=== PATIENT | female | born 1990 | race Caucasian/White ===

== ENCOUNTER 2019-08-04 10:56 | Inpatient (IN) | payer BC ==
[2019-08-08] MEDS ORDERED: Bupivacaine PF 0.5% 30 ML VIAL ONE (09:26)
[2019-08-08] MEDS ORDERED: Lidocaine 2% MPF 10 ML AMP (For Epidural Use) ONE (09:26)
[2019-08-08] MEDS ORDERED: Lidocaine 1% (PF) 30 ML VIAL SC PRN (15:21)
[2019-08-08] MEDS ORDERED: Diphenoxylate HCl/Atropine Tablet PO PRN (15:21)
[2019-08-08] MEDS ORDERED: Ondansetron PF 4 MG/2 ML Vial IVP PRN (15:21)
[2019-08-08] MEDS ORDERED: Carboprost 250 MCG/ML AMP IM PRN (15:21)
[2019-08-08] MEDS ORDERED: hydrALAZINE 20 MG/ML VIAL SLOW IVP PRN (15:21)
[2019-08-08] MEDS ORDERED: Acetaminophen 500 MG TAB PO PRN (15:21)
[2019-08-08] MEDS ORDERED: HYDROcodone/Acetaminophen 5/325 mg Tablet PO PRN (15:21)
[2019-08-08] MEDS ORDERED: NS / Oxytocin 40 units/1000ml 1,000 ML IV PRN (15:21)
[2019-08-08] MEDS ORDERED: Promethazine HCl 25 MG/ML VIAL IM PRN (15:21)
[2019-08-08] MEDS ORDERED: Ibuprofen 800 MG TAB PO PRN (15:21)
[2019-08-08] MEDS ORDERED: Butorphanol Tartrate 1 MG/ML VIAL SLOW IVP PRN (15:21)
[2019-08-08] MEDS ORDERED: Zolpidem Tartrate 5 MG TAB PO PRN (15:21)
[2019-08-08] MEDS ORDERED: NS w/ Oxytocin 10 units 500 ML IV SCH (15:30)
[2019-08-08] MEDS: Lactated Ringer's 1,000 ML IV SCH (19:46)
[2019-08-08 20:15] VITALS: BMI 32.9
[2019-08-08 20:34] LABS: Hemoglobin 13.8 g/dL (12.0-16.0); Mean Corpuscular HGB CONC 33.2 g/dL (32.0-36.0); Mean Corpuscular Hemoglobin 32.7 pg (27.0-31.0); Mean Corpuscular Volume 98.3 fL (78.0-98.0); Mean Platelet Volume 9.9 fL (7.4-10.4); Platelet Count 198 thou/uL (130-400); RBC Distribution Width 11.7 % (11.5-14.5); Red Blood Cell (RBC) Count 4.21 mill/uL (4.20-5.40); White Blood Cell (WBC) Count 10.6 thou/uL (4.8-10.8)
[2019-08-08] MEDS: Misoprostol 100 MCG TAB VAG SCH (20:40)
[2019-08-08 21:12] LABS: Syphilis Antibody Nonreactive (Nonreactive); Syphilis Antibody Index 0.03 S/CO (<1.00 Non-Reactive)
[2019-08-08 22:31] LABS: HBSAg Index 0.13 S/CO (0-0.99); Hep B Surf Ag Non-Reactive S/CO (NonReactive)
[2019-08-09] MEDS: Misoprostol 100 MCG TAB VAG SCH ×2 (00:53→04:00)
[2019-08-09] MEDS ORDERED: Fentanyl 4 mcg/Bup 0.1% Cadd 100 ML ONE ×2 (06:55→14:37)
[2019-08-09] MEDS ORDERED: Fentanyl 100 MCG/2 ML VIAL ONE ×2 (07:12→17:56)
[2019-08-09] MEDS ORDERED: Bupivacaine 0.5% 10 ML VIAL ONE (07:12)
[2019-08-09] MEDS ORDERED: Fentanyl 100 MCG/2 ML VIAL I-THECAL ONE (07:41)
[2019-08-09] MEDS ORDERED: Bupivacaine 0.25% 10 ML VIAL EPIDURAL SCH (07:41)
[2019-08-09] MEDS: Lactated Ringer's 1,000 ML IV SCH ×4 (07:42→23:30)
[2019-08-09] MEDS ORDERED: EPHEDRINE 25 MG/5 ML SYRINGE SLOW IVP PRN (07:43)
[2019-08-09] MEDS ORDERED: Ondansetron PF 4 MG/2 ML Vial IVP PRN ×2 (07:43→18:44)
[2019-08-09] MEDS ORDERED: Acetaminophen 325 MG TAB PO PRN (07:43)
[2019-08-09] MEDS ORDERED: Lactated Ringer's 500 ML IV PRN (07:43)
[2019-08-09] MEDS ORDERED: Promethazine HCl 25 MG/ML VIAL IM PRN ×2 (07:43→18:44)
[2019-08-09] MEDS ORDERED: diphenhydrAMINE 50 MG/ML VIAL IVP PRN ×2 (07:43→18:44)
[2019-08-09] MEDS ORDERED: Naloxone HCl 0.4 mg/ml Vial IVP PRN ×4 (07:43→18:44)
[2019-08-09] MEDS ORDERED: Fentanyl 4 mcg/Bupivacaine 0.1% Cassette 100 ML EPIDURAL SCH (07:45)
[2019-08-09] MEDS ORDERED: Communication Order-Pharmacy FS PRN (07:45)
[2019-08-09] MEDS ORDERED: NS / Oxytocin 40 units/1000ml 0 ML ONE (12:30)
[2019-08-09] MEDS ORDERED: Lidocaine 1% (PF) 30 ML VIAL ONE (12:31)
[2019-08-09] MEDS: Bicitra 30 ML UDCUP ONE (17:36)
[2019-08-09] MEDS ORDERED: EPHEDRINE 25 MG/5 ML SYRINGE ONE (17:44)
[2019-08-09] MEDS ORDERED: Ondansetron PF 4 MG/2 ML Vial ONE (17:44)
[2019-08-09] MEDS ORDERED: MORPHINE 5 MG/10 ML PF VIAL ONE (17:44)
[2019-08-09] MEDS ORDERED: PHENYLEPHRINE-NS 100 MCG/ML 10 ML SYRINGE ONE (17:44)
[2019-08-09] MEDS ORDERED: Ketorolac Tromethamine 30 MG/ML VIAL ONE ×2 (17:44→20:08)
[2019-08-09] MEDS ORDERED: Dexamethasone 4 mg/ml Vial ONE (17:44)
[2019-08-09] MEDS ORDERED: Oxytocin 10 UNITS/ML VIAL ONE (17:44)
[2019-08-09] MEDS ORDERED: CEFAZOLIN 2 GM in Premix Bag 1 BAG IVPB SCH (17:45)
[2019-08-09] MEDS ORDERED: Bicitra 30 ML UDCUP PO SCH (17:45)
[2019-08-09] MEDS ORDERED: Azithromycin 500 MG in Sodium Chloride 0.9% 250 ML 250 ML IVPB SCH (17:45)
--- NOTE | 2019-08-09 17:46 | PDOC.EVN ---
Event Note - Event Note Event Note: Patient has been undergoing labor induction for post dates. She has progressed slowly to 6/C/0 at 1700. She has continued to have recurrent late decelerations that have now become more frequent with decreasing variability despite position change, ivf boluses. etc. A/P: Non reassurring heart rate with protracted cervical dilatation. Proceed with primary c/s...
[2019-08-09] MEDS ORDERED: diphenhydrAMINE 25 MG CAP PO PRN (17:47)
[2019-08-09] MEDS ORDERED: Bisacodyl 10 MG SUPP PR PRN (17:47)
[2019-08-09] MEDS ORDERED: hydrALAZINE 20 MG/ML VIAL SLOW IVP PRN (17:47)
[2019-08-09] MEDS ORDERED: Adacel (T-DAP) 0.5 ML SYRINGE IM ONE (17:47)
[2019-08-09] MEDS ORDERED: Misoprostol 200 MCG TAB PR PRN (17:47)
[2019-08-09] MEDS ORDERED: Azithromycin 500 MG VIAL ONE (17:53)
[2019-08-09] MEDS ORDERED: Methylergonovine 0.2 MG/ML VIAL ONE (18:09)
[2019-08-09] MEDS ORDERED: Midazolam HCl 2 mg/2 ml Vial ONE (18:15)
[2019-08-09] MEDS ORDERED: Carboprost 250 MCG/ML AMP ONE (18:16)
[2019-08-09 18:22] LABS: Actual Bicarbonate (HCO3a) 22.8 mEq/L (22-28)
[2019-08-09 18:25] LABS: Actual Bicarbonate (HCO3v) 24 mEq/L (22-28); Base Excess -4.9 mEq/L (-2.0 to +3.0)
[2019-08-09 18:27] LABS: pH (Cord, venous) 7.24 (7.32-7.43)
--- NOTE | 2019-08-09 18:35 | PDOC.OPDEL ---
OB Operative/Delivery Note Delivery Dr/Surgeon: Brandon Assist: James Pre-Delivery Diagnosis: elective induction Procedure/Post Delivery Dx: primary low transverse CS Weeks gestation: 40 Anesthesia: epidural - Findings A Sex: female Weight: 7 lb 3 oz - 1 min: 9 - 5 min: 9 - Additional Findings/Plan Placenta delivered: manual removal findings: low transverse hysterotomy without extension Estimated blood loss: 800 ml Post delivery plan: routine recovery (Initial uterine atony responsive to amp of methergine and hemabate.)
[2019-08-09] MEDS ORDERED: Loperamide HCl 2 MG CAP PO PRN (18:38)
[2019-08-09] MEDS ORDERED: Meperidine HCl/PF 25 MG/ML VIAL SLOW IVP PRN (18:44)
[2019-08-09] MEDS ORDERED: HYDROmorphone 2 MG/ML VIAL SLOW IVP PRN (18:44)
[2019-08-09] MEDS ORDERED: L&D-Morphine 4 MG/ML VIAL SLOW IVP PRN (18:44)
[2019-08-09] MEDS ORDERED: Naloxone HCl 0.4 mg/ml Vial IV PRN (18:44)
[2019-08-09] MEDS ORDERED: Promethazine HCl 25 MG SUPP PR PRN (18:44)
[2019-08-09] MEDS ORDERED: Ondansetron HCl/PF 4 MG/2 ML Vial IVP PRN (18:44)
[2019-08-09] MEDS ORDERED: Communication Order-Pharmacy FS SCH (18:45)
[2019-08-09] MEDS ORDERED: Ketorolac Tromethamine 30 MG/ML VIAL IVP SCH (18:45)
[2019-08-09] MEDS ORDERED: Meperidine HCl/PF 25 MG/ML VIAL ONE (19:38)
[2019-08-09] MEDS: Ketorolac Tromethamine 30 MG/ML VIAL IVP PRN (20:12)
[2019-08-09] MEDS ORDERED: Morphine 4 MG/ML VIAL ONE (20:52)
[2019-08-09] MEDS ORDERED: Lanolin Ointment 7 GM TUBE TOP PRN (22:18)
[2019-08-09] MEDS ORDERED: Milk Of Magnesia 30 ML UDCUP PO PRN (22:18)
[2019-08-09] MEDS ORDERED: Methylergonovine 0.2 MG TAB PO PRN (22:18)
[2019-08-09] MEDS ORDERED: Methylergonovine 0.2 MG/ML VIAL IM PRN (22:18)
--- NOTE | 2019-08-09 23:01 | OP ---
DATE OF PROCEDURE: 08/09/2019 PREOPERATIVE DIAGNOSES: 1. 29-year-old white female, G1, P0, at 40 weeks and 5 days gestation. 2. Status post labor induction. 3. Protracted cervical dilatation at 6 cm. 4. Non-reassuring heart rate tracing remote from delivery. POSTOPERATIVE DIAGNOSES: 1. 29-year-old white female, G1, P0, at 40 weeks and 5 days gestation. 2. Status post labor induction. 3. Protracted cervical dilatation at 6 cm. 4. Non-reassuring heart rate tracing remote from delivery. PROCEDURES PERFORMED: Primary low transverse section without extension. [facility]: Dr. Ramirez from [facility]. ANESTHESIA: Epidural. ESTIMATED BLOOD LOSS: 800 mL. COMPLICATIONS: None. COUNTS: Correct x2. ANTIBIOTICS: 2 g Ancef, then 500 mg of Zithromax per protocol. FINDINGS: 1. Female in the ROP presentation, clear amniotic fluid noted. Apgars 9 and 9. weight 7 pounds 3 ounces. 2. Normal-appearing uterus, tubes, and ovaries. 3. Initial uterine atony responsive to one amp Methergine and one amp Hemabate. 4. Clear urine present in Randolph catheter postprocedure. DISPOSITION: Recovery room, stable. DESCRIPTION OF PROCEDURE: The patient previously received informed consent and was then taken back to the operative room. She had adequate dosing of her epidural anesthesia and once this was felt to be adequate, the patient had been prepped and draped in usual sterile fashion with draining Randolph catheter. A Pfannenstiel incision was made in the lower abdomen and was carried down to the fascia. Fascia was nicked in the midline. Fascial incision was extended with Crum scissors. The rectus muscle belly was then dissected superiorly and inferiorly off the rectus muscle bellies and the peritoneal cavity was entered. The peritoneal incision was extended and Nikunj O retractor was placed. Bladder flap was created in usual fashion. A 2 cm hysterotomy incision was made in the lower uterine segment. This was extended via finger fractionation. The baby was delivered in the vertex presentation. Mouth and nares were bulb suctioned on the abdomen. The cord was doubly clamped and cut, and the baby was handed to the pediatric team in attendance. Cord blood along with cord blood segment was obtained in usual fashion. The placenta was manually extracted. The uterus curetted of any remaining placental fragments with a dry laparotomy sponge. The edges of the hysterotomy incision were grasped at the angle and in the midline from the active bleeder with ring forceps. The hysterotomy incision was then closed with a running locking fashion with #1 Monocryl in double-layer closure. Hemostasis was confirmed. The uterus was noted to be boggy during the hysterotomy closure and one amp of Methergine was given along with continued massage and an additional one amp of Hemabate was given after hysterotomy was closed due to some persistent mild bogginess. There was no active heavy bleeding noted vaginally. The pelvis again was inspected after the retractor had been removed. Hemostasis along the hysterotomy site was confirmed. The rectus muscle bellies were noted to be hemostatic prior to fascial closure. The fascia was closed with 0 PDS suture x2 in a running continuous fashion. Subcutaneous tissue was noted to be hemostatic prior to skin approximation with arnoldo. The surgery was terminated. There was no anesthetic or surgical complications. Job ID: [id number]
[2019-08-09] MEDS: Docusate Calcium (SURFAK) 240 MG CAP PO SCH (23:55)
[2019-08-09] MEDS: Ibuprofen 800 MG TAB PO SCH (23:55)
[2019-08-10] MEDS: Ketorolac Tromethamine 30 MG/ML VIAL IVP PRN (01:05)
--- NOTE | 2019-08-10 05:57 | PDOC.PP ---
Post Progress Note Post Day #: 12 hrs Subjective: Still sore at abdomen but no acute pain PO intake tolerated: yes Flatus: yes Ambulation: yes Vital Signs (12 hours) Temp Pulse Resp BP Pulse Ox 08/10/19 04:20 97.8 F 65 18 106/61 98 08/10/19 00:10 98.0 F 62 18 123/75 08/09/19 21:30 97.8 F 58 L 18 111/65 98 Weight Weight 192 lb Patient resting comfortably in bed - Physical Examination General: NAD Cardiovascular: no m/r/g, RRR Respiratory: non-labored breathing Abdominal: no distention Deviation from normal: Dressing intact Neurological: no gross focal deficits Psychiatric: A&Ox3, normal affect Result Diagrams: 08/08/19 20:17 Additional Labs: Post Labs Blood Type A POSITIVE 08/08/19 23:45 Hep Bs Antigen Non-Reactive S/CO (NonReactive) 08/08/19 20:17 (1) delivery delivered Code(s): O82 - ENCOUNTER FOR DELIVERY WITHOUT INDICATION Status: Acute - Assessment/Plan POD 12 hrs: remove jason by 12-24 hrs. Ambulate today Dressing off abd on 24 hrs routine postop care for now
[2019-08-10] MEDS: HYDROcodone/Acetaminophen 5/325 mg Tablet PO PRN ×5 (07:10→23:44)
[2019-08-10] MEDS: Prenatal Vitamin 1 TAB PO SCH (07:10)
[2019-08-10] MEDS: Docusate Calcium (SURFAK) 240 MG CAP PO SCH ×2 (07:10→20:02)
[2019-08-10] MEDS: Bicitra 30 ML UDCUP ONE (07:21)
[2019-08-10] MEDS: Ibuprofen 800 MG TAB PO SCH ×3 (07:22→21:23)
[2019-08-10] MEDS: Misoprostol 100 MCG TAB VAG SCH (07:24)
[2019-08-10] MEDS: Lactated Ringer's 1,000 ML IV SCH ×3 (07:39→19:09)
[2019-08-10] MEDS: Simethicone Chewable 80 MG TAB PO PRN ×2 (11:25→15:29)
[2019-08-11] MEDS: Ibuprofen 800 MG TAB PO SCH ×3 (06:03→21:50)
[2019-08-11] MEDS: HYDROcodone/Acetaminophen 5/325 mg Tablet PO PRN ×5 (06:05→22:48)
--- NOTE | 2019-08-11 06:25 | PDOC.PP ---
Post Progress Note Post Day #: POD2 Subjective: Resting. Up to bathroom. PO intake tolerated: yes Flatus: no Ambulation: yes Vital Signs (12 hours) Temp Pulse Resp BP Pulse Ox 08/11/19 06:03 98.2 F 84 16 111/70 99 08/10/19 23:44 98.1 F 95 18 109/59 L 98 08/10/19 19:22 97.9 F 96 18 110/53 L 100 Weight Weight 87.09 kg - Physical Examination General: NAD Respiratory: non-labored breathing Abdominal: no distention Skin: CS incision dry & intact Neurological: no gross focal deficits Psychiatric: normal affect Result Diagrams: 08/08/19 20:17 Additional Labs: Post Labs Blood Type A POSITIVE 08/08/19 23:45 Hep Bs Antigen Non-Reactive S/CO (NonReactive) 08/08/19 20:17 - Assessment/Plan Advance diet. Ambulate. Anticipate DC in AM 5/4
[2019-08-11] MEDS: Docusate Calcium (SURFAK) 240 MG CAP PO SCH ×2 (08:20→21:50)
[2019-08-11] MEDS: Prenatal Vitamin 1 TAB PO SCH (08:20)
[2019-08-11] MEDS: Lactated Ringer's 1,000 ML IV SCH (14:46)
[2019-08-11] MEDS: Simethicone Chewable 80 MG TAB PO PRN (18:44)
[2019-08-12] MEDS: Ibuprofen 800 MG TAB PO SCH (05:10)
[2019-08-12] MEDS: Lactated Ringer's 1,000 ML IV SCH (07:05)
[2019-08-12] MEDS: Docusate Calcium (SURFAK) 240 MG CAP PO SCH (07:37)
[2019-08-12] MEDS: Prenatal Vitamin 1 TAB PO SCH (07:37)
[2019-08-12] MEDS: HYDROcodone/Acetaminophen 5/325 mg Tablet PO PRN (07:38)
[2019-08-12 07:46] VITALS: BP 109/70; TEMP 98.5
--- NOTE | 2019-08-12 07:47 | PDOC.PP ---
Post Progress Note Post Day #: 3 PO intake tolerated: yes Flatus: yes Ambulation: yes Vital Signs (12 hours) Temp Pulse Resp BP Pulse Ox 08/12/19 07:45 98.5 F 77 20 109/70 98 08/11/19 19:54 98.4 F 89 18 114/63 99 Weight Weight 192 lb Result Diagrams: 08/08/19 20:17 Additional Labs: Post Labs Blood Type A POSITIVE 08/08/19 23:45 Hep Bs Antigen Non-Reactive S/CO (NonReactive) 08/08/19 20:17 - Assessment/Plan Doing well post op day3. Discharge home. [place] out post op day 6 .post check 6 weeks.
== END 2019-08-12 12:30 | disposition home or self-care (01) | DRG 788 ==
LOC: EDSTATUS 14:05 → L&D 08-08 19:22 → 3SW 08-09 22:12
PROVIDERS: ADMIT Obstetrics & Gynecology; ATTEND Obstetrics & Gynecology
PROC: 3E033VJ Introduction of Other Hormone into Peripheral Vein, Percutaneous Approach (ICD-10-PCS; 2019-08-08)
PROC: 10D00Z1 Extraction of Products of Conception, Low, Open Approach (ICD-10-PCS; principal; 2019-08-09)
DX: O48.0 Post-term pregnancy (principal); O76 Abnormality in fetal heart rate and rhythm complicating labor and delivery; O62.2 Other uterine inertia; O62.0 Primary inadequate contractions; Z3A.40 40 weeks gestation of pregnancy; Z37.0 Single live birth
CPT/HCPCS: 36415; 51702; 82805; 85027; 86780; 86850; 86900; 86901; 87340; 99285; J0456; J0690; J1100; J1885; J2001; J2175; J2210; J2250; J2270; J2274; J2405; J2590; J3010; J3490; S0020